=== PATIENT | female | born 2000 | race Caucasian/White ===

== ENCOUNTER → 2020-03-29 | Outpatient (CLI) | payer OTHER ==
[2020-03-29 07:40] LABS: BASOPHILS # (AUTO) 0.03 x10^3/uL (0-0.3); BASOPHILS % (AUTO) 0 % (0-1); EOSINOPHILS # (AUTO) 0.25 x10^3/uL (0-0.8); EOSINOPHILS % (AUTO) 3 % (1-7); LYMPHOCYTES # (AUTO) 3.01 x10^3/uL (1-6.1); LYMPHOCYTES % (AUTO) 34 % (22-44); MD NO; MEAN CORPUSCULAR HEMOGLOBIN 29.4 pg (27.0-34.8); MEAN CORPUSCULAR HGB CONC 32.7 g/dL (32.4-35.8); MEAN CORPUSCULAR VOLUME 89.9 fL (80-100); MEAN PLATELET VOLUME 7.6 fL (7.4-10.4); MONOCYTES # (AUTO) 0.66 x10^3/uL (0-1.4); MONOCYTES % (AUTO) 8 % (2-9); NEUTROPHILS # (AUTO) 4.85 x10^3/uL (1.8-8.0); NEUTROPHILS % (AUTO) 55 % (42-75); PLATELET COUNT 334 x10^3/uL (130-400); RED BLOOD COUNT 4.59 x10^6/uL (3.82-5.3); RED CELL DISTRIBUTION WIDTH 12.5 % (9.6-15.2)
[2020-03-29 07:43] LABS: ALANINE AMINOTRANSFERASE 13 U/L (12-78); ALBUMIN 3.4 g/dL (3.4-5.0); TRIGLYCERIDES 56 mg/dL (50-200)
[2020-03-29 07:46] LABS: ALKALINE PHOSPHATASE 58 U/L (45-117); BILIRUBIN,TOTAL 0.3 mg/dL (0.2-1.0); TOTAL PROTEIN 6.8 g/dL (6.4-8.2)
[2020-03-29 07:54] LABS: BILIRUBIN, DIRECT 0.1 mg/dL (0.1-0.2); BILIRUBIN,INDIRECT 0.2 mg/dL (0.0-2.0)
== END | disposition home or self-care (01) ==
LOC: LAB 07:19
PROVIDERS: ATTEND Registered Nurse
DX: L70.0 Acne vulgaris (principal); L90.5 Scar conditions and fibrosis of skin; Z79.899 Other long term (current) drug therapy
CPT/HCPCS: 36415; 80076; 84478; 84702; 85025

== ENCOUNTER → 2020-04-20 | Outpatient (CLI) | payer OTHER ==
[2020-04-20 09:17] LABS: ALANINE AMINOTRANSFERASE 17 U/L (12-78); ALBUMIN 3.4 g/dL (3.4-5.0); BILIRUBIN, DIRECT 0.1 mg/dL (0.1-0.2); TRIGLYCERIDES 134 mg/dL (50-200)
[2020-04-20 09:22] LABS: ALKALINE PHOSPHATASE 54 U/L (45-117); BILIRUBIN,INDIRECT 0.4 mg/dL (0.0-2.0); BILIRUBIN,TOTAL 0.5 mg/dL (0.2-1.0); TOTAL PROTEIN 7.3 g/dL (6.4-8.2)
== END | disposition home or self-care (01) ==
LOC: LAB 08:52
PROVIDERS: ATTEND Registered Nurse
DX: L90.5 Scar conditions and fibrosis of skin (principal); L70.0 Acne vulgaris; Z79.899 Other long term (current) drug therapy
CPT/HCPCS: 36415; 80076; 84478; 84703

== ENCOUNTER → 2020-05-23 | Outpatient (CLI) | payer OTHER ==
[2020-05-23 14:27] LABS: ALANINE AMINOTRANSFERASE 14 U/L (12-78); ALBUMIN 3.4 g/dL (3.4-5.0)
[2020-05-23 14:29] LABS: BILIRUBIN, DIRECT < 0.1 mg/dL (0.1-0.2)
[2020-05-23 14:32] LABS: ALKALINE PHOSPHATASE 58 U/L (45-117); BILIRUBIN,INDIRECT 0.2 mg/dL (0.0-2.0); BILIRUBIN,TOTAL 0.3 mg/dL (0.2-1.0); TOTAL PROTEIN 7.4 g/dL (6.4-8.2); TRIGLYCERIDES 115 mg/dL (50-200)
== END | disposition home or self-care (01) ==
LOC: LAB 13:49
PROVIDERS: ATTEND Internal Medicine
DX: L70.0 Acne vulgaris (principal); L90.5 Scar conditions and fibrosis of skin; Z79.899 Other long term (current) drug therapy
CPT/HCPCS: 36415; 80076; 84478; 84702

== ENCOUNTER → 2020-06-28 | Outpatient (CLI) | payer OTHER ==
[2020-06-28 08:32] LABS: ALBUMIN 3.5 g/dL (3.4-5.0)
[2020-06-28 08:38] LABS: ALANINE AMINOTRANSFERASE 22 U/L (12-78); ALKALINE PHOSPHATASE 66 U/L (45-117); BILIRUBIN,TOTAL 0.4 mg/dL (0.2-1.0); TOTAL PROTEIN 7.3 g/dL (6.4-8.2); TRIGLYCERIDES 97 mg/dL (50-200)
[2020-06-28 08:43] LABS: BILIRUBIN, DIRECT < 0.1 mg/dL (0.1-0.2); BILIRUBIN,INDIRECT 0.3 mg/dL (0.0-2.0)
== END | disposition home or self-care (01) ==
LOC: LAB 08:09
PROVIDERS: ATTEND Registered Nurse
DX: L70.0 Acne vulgaris (principal); L90.5 Scar conditions and fibrosis of skin; Z79.899 Other long term (current) drug therapy
CPT/HCPCS: 36415; 80076; 84478; 84702

== ENCOUNTER → 2020-09-15 | Outpatient (CLI) | payer OTHER ==
[2020-09-15 10:38] LABS: ALANINE AMINOTRANSFERASE 25 U/L (12-78); ALBUMIN 3.6 g/dL (3.4-5.0); BILIRUBIN, DIRECT 0.1 mg/dL (0.1-0.2); TRIGLYCERIDES 131 mg/dL (50-200)
[2020-09-15 10:42] LABS: ALKALINE PHOSPHATASE 49 U/L (45-117); BILIRUBIN,INDIRECT 0.4 mg/dL (0.0-2.0); BILIRUBIN,TOTAL 0.5 mg/dL (0.2-1.0); TOTAL PROTEIN 7.3 g/dL (6.4-8.2)
== END | disposition home or self-care (01) ==
LOC: LAB 10:13
PROVIDERS: ATTEND Registered Nurse
DX: L70.0 Acne vulgaris (principal); L90.5 Scar conditions and fibrosis of skin; Z79.899 Other long term (current) drug therapy
CPT/HCPCS: 36415; 80076; 84478; 84703

== ENCOUNTER 2020-12-21 22:10 | Emergency (ER) | payer OTHER ==
[~2020-12-21] VITALS: Ht 165.1 cm; Wt 64.0 kg
[2020-12-21] MEDS ORDERED: ONDANSETRON 2MG/ML, 2ML IVPush ONE (22:30)
[2020-12-21] MEDS ORDERED: SODIUM CHLORIDE FLUSH 10ML SYR IVF ONE (22:30)
[2020-12-21 22:51] LABS: ALANINE AMINOTRANSFERASE 15 U/L (12-78); ALBUMIN 3.9 g/dL (3.4-5.0); ANION GAP 8 mmol/L (5-15); CALCIUM 8.9 mg/dL (8.5-10.1); CHLORIDE 108 mmol/L (98-107); CREATININE 0.84 mg/dL (0.55-1.02)
[2020-12-21 22:52] LABS: BASOPHILS % (AUTO) 0 % (0-1); EOSINOPHILS % (AUTO) 0 % (1-7); LYMPHOCYTES % (AUTO) 5 % (22-44); MEAN CORPUSCULAR HEMOGLOBIN 29.7 pg (27.0-34.8); MEAN CORPUSCULAR HGB CONC 33.9 g/dL (32.4-35.8); MEAN PLATELET VOLUME 7.6 fL (7.4-10.4); MONOCYTES % (AUTO) 5 % (2-9); NEUTROPHILS % (AUTO) 90 % (42-75); PLATELET COUNT 319 x10^3/uL (130-400); RED BLOOD COUNT 4.82 x10^6/uL (3.82-5.3)
[2020-12-21 22:55] LABS: ALKALINE PHOSPHATASE 66 U/L (45-117); BILIRUBIN,TOTAL 0.9 mg/dL (0.2-1.0); TOTAL PROTEIN 7.8 g/dL (6.4-8.2)
[2020-12-21 23:16] LABS: MD SCAN
--- NOTE | 2020-12-21 23:25 | NUR ---
INITIAL PT CONTACT. PT PRESENTS TO ED C/O N/V/D STARTING TODAY. PT STATES PAIN BEGAN "ALL OF A SUDDEN IN THE LOWER PART OF MY BELLY, MORE ON THE RIGHT SIDE". PT DENIES ANY OTHER SYMPTOMS "OTHER THAN JUST FEELING REALLY TIRED". PT SUPINE ON ROSCOE LOCK, EDWARDO. PT DENIES ANY NEEDS AT THIS TIME. CALL LIGHT IN REACH. MOTHER AT BEDSIDE.
[2020-12-21] MEDS ORDERED: ONDANSETRON 2MG/ML, 2ML ONE (23:39)
--- NOTE | 2020-12-21 23:42 | NUR ---
PT TO CT
[2020-12-21 23:46] LABS: MICROSCOPIC INDICATED
--- NOTE | 2020-12-21 23:50 | NUR ---
PT RETURNED TO ROOM FROM CT
[2020-12-21] MEDS ORDERED: OMNIPAQUE 350 MG/ML, 100ML BOTTLE ONE (23:53)
[2020-12-22 01:12] VITALS: BP 105/63
== END 2020-12-22 01:13 | disposition home or self-care (01) ==
LOC: ED 12-22 01:00
DX: R10.84 Generalized abdominal pain (principal); R10.31 Right lower quadrant pain; R11.2 Nausea with vomiting, unspecified
CPT/HCPCS: 36415; 74177; 80053; 81001; 84703; 85025; 87086; 96374; 99285; J2405; Q9967